=== PATIENT | male | born 1990 | race Caucasian/White ===

== ENCOUNTER 2022-08-06 15:12 | Emergency (ER) | payer OTHER, SELFPAY ==
--- NOTE | ~2022-08-06 | XR_ITS ---
EXAMINATION: XR HAND, LEFT CLINICAL INFORMATION: Soft tissue laceration of the thumb COMPARISON: None available. TECHNIQUE: PA, lateral, and oblique views of the left hand. FINDINGS: The bones and soft tissues are normal. No fracture. Alignment is anatomic. Joint spaces are maintained. No erosions or soft tissue calcifications. XR/XR hand LT min 3V IMPRESSION: Normal left hand.
--- NOTE | 2022-08-06 15:15 | ED.UPPEXIN ---
HPI - Extremity Injury (Upper) General Chief Complaint: Wound/Laceration <DAT Woodall Last Filed: 08/06/22 15:22> Stated Complaint: left hand thumb injury <DAT Woodall Last Filed: 08/06/22 15:22> Time Seen by Provider: 08/06/22 15:53 <DAT Woodall Last Filed: 08/06/22 15:22> Source: patient <DAT Wright Last Filed: 08/06/22 16:49> Mode of arrival: ambulatory <DAT Wright Last Filed: 08/06/22 16:49> Limitations: no limitations <DAT Wright Last Filed: 08/06/22 16:49> History of Present Illness HPI narrative: 32 year old male presents w/ laceration to L thumb [employer] cut himself with a wood shop pocket knife.Can see a white thing moving in laceration. Reports numbness to L thumb no tingling. No previous issues w/ left thumb. <DAT Wright Last Filed: 08/06/22 16:49> Related Data Home Medications: Previous Rx's Medication Instructions Recorded cephalexin 500 mg tablet 500 mg PO Q6H 10 days #40 tabs 08/06/22 <DAT Woodall Last Filed: 08/06/22 15:22> Allergies/Adverse Reactions: Allergies Allergy/AdvReac Type Severity Reaction Status Date / Time No Known Allergies Allergy Verified 08/06/22 15:15 <DAT Woodall Last Filed: 08/06/22 15:22> Review of Systems Review of Systems: Constitutional : No Weight loss, No Fever, No Chills, No Fatigue, No Malaise ENT/Mouth : No sore throat, No Rhinorrhea Eyes: No Eye Pain, No Swelling, No Redness Cardiovascular : No Chest Pain, No SOB, No Dyspnea on Exertion, No Orthopnea, No Edema, No Palpitations Respiratory : No Cough, No Sputum, No Wheezing Gastrointestinal : No Nausea, No Vomiting, No Diarrhea, No Constipation, No abdominal Pain, No Hematochezia, No Melena Genitourinary : No Dysuria, No Urinary Frequency, No Hematuria, Musculoskeletal : + joint pain, No Myalgias, No Joint Swelling Skin : No Skin Lesions, No rash, + laceration Neuro : No Weakness, No Numbness, No Dizziness, No Headache Psych : No Anxiety/Panic, No Depression All other systems reviewed and are negative <DAT Wright - Last Filed: 08/06/22 16:49> Yes all other systems are reviewed and are negative <DAT Wright - Last Filed: 08/06/22 16:49> [facility] Past Medical History Attestation statement: The following information was validated with the patient. <DAT Wright - Last Filed: 08/06/22 16:49> Source: old records reviewed and nursing notes reviewed <DAT Wright - Last Filed: 08/06/22 16:49> Social History Social History: Social History Advance Directives: No Advance Directives Information Provided: Yes <DAT Woodall - Last Filed: 08/06/22 15:22> Physical Exam Vital Signs: Vital Signs: Last Vital Signs Temp 98.9 F 08/06/22 15:16 Pulse 94 08/06/22 15:16 Resp 18 08/06/22 15:16 BP 133/89 08/06/22 15:16 Pulse Ox 97 08/06/22 15:16 O2 Del Method Room Air 08/06/22 15:16 BMI result Body Mass Index 28.2 <DAT Woodall - Last Filed: 08/06/22 15:22> Vital Signs: Last Vital Signs Temp 98.9 F 08/06/22 15:16 Pulse 94 08/06/22 15:16 Resp 18 08/06/22 15:16 BP 133/89 08/06/22 15:16 Pulse Ox 97 08/06/22 15:16 O2 Del Method Room Air 08/06/22 15:16 BMI result Body Mass Index 28.2 vss <DAT Wright - Last Filed: 08/06/22 16:49> Appearance: Alert.? Oriented X3.? No acute distress.? Head: Normocephalic, atraumatic, no step-offs or deformities Eyes: Pupils equal, round and reactive to light.? CVS: Normal heart rate and rhythm.? Pulses normal.? Respiratory: No respiratory distress.? Breath sounds normal.? Abdomen: Soft and nontender.? Skin: Skin warm and dry.? Normal skin color.? Normal skin turgor.? Extremities: 5/5 strength to bilateral upper and lower extremities L thumb with weakness w/ extension concerns for Extensor pollcus longus injury. Normal opposition and repositioning to all digits b/l. Cap refil < 2 seconds. No wrist drop. 2 + radial pulses. 1 cm liner laceration to distal aspect of thumb w/ exposed tendon beneath. Back: No midline tenderness, no C-spine tenderness, full range of motion, no CVA tenderness bilaterally Neuro: Oriented X 3.? No motor deficit.? No sensory deficit. CN 2-12 intact <DAT Wright - Last Filed: 08/06/22 16:49> Course Course Course Narrative: RME: 32yo M w/no sig PMHx c/o laceration to L thumb s/p using pocket knife [employer]. Last Tetanus '18 +1 cm laceration noted to left thumb MCP. ? Extensor tendon laceration Will need repair. Tetanus ordered Full HPI, ROS and PE to be performed by primary ED provider. <DAT Woodall - Last Filed: 08/06/22 15:22> Reevaluation(s) Reevaluation #1: Patient evaluated by Dr. Becerra agrees w/ tendon injury. lac repaired with 2, 5-0 non dissolvable sutures. Will have him follow with hand. Xray ordered results pending. Will DC home on atbx. Advised to return w/ new or worsening sx. Educated on worrisome signs and sx. <DAT Wright - Last Filed: 08/06/22 16:49> Time: 16:48 <DAT Wright - Last Filed: 08/06/22 16:49> Reevaluation #2: Spoke to ortho Sabra who is aware of case, no further recommendations. <DAT Wright Last Filed: 08/06/22 16:49> Medications Administered Discontinued Medications Generic Name Dose Route Start Last Admin Trade Name Freq PRN Reason Stop Dose Admin Diphtheria/Tetanus/Acell Pertussis 0.5 ml 08/06/22 15:15 08/06/22 15:49 Diphth,Pertus(Acell),Tet Adult 0.5 Ml Syringe IM 08/06/22 15:16 0.5 ml .ONCE ONE Administration Lidocaine HCl 5 ml 08/06/22 15:15 08/06/22 15:49 Lidocaine Hcl 1 % Mpf 5 Ml Vial INFILTRATI 08/06/22 15:16 5 ml ONCE ONE Administration <DAT Woodall - Last Filed: 08/06/22 15:22> Medications Administered Discontinued Medications Generic Name Dose Route Start Last Admin Trade Name Freq PRN Reason Stop Dose Admin Diphtheria/Tetanus/Acell Pertussis 0.5 ml 08/06/22 15:15 08/06/22 15:49 Diphth,Pertus(Acell),Tet Adult 0.5 Ml Syringe IM 08/06/22 15:16 0.5 ml .ONCE ONE Administration Lidocaine HCl 5 ml 08/06/22 15:15 08/06/22 15:49 Lidocaine Hcl 1 % Mpf 5 Ml Vial INFILTRATI 08/06/22 15:16 5 ml ONCE ONE Administration <DAT Wright Last Filed: 08/06/22 16:49> Medical Decision Making Medical Decision Making [facility] Narrative: 1640 32 year old male presents w. L thumb pain sp lac PE- w/ 5/5 strength to bilateral upper and lower extremities L thumb with weakness w/ extension concerns for Extensor pollcus longus injury. Normal opposition and repositioning to all digits b/l. Cap refil < 2 seconds. No wrist drop. 2 + radial pulses. 1 cm liner laceration to distal aspect of thumb w/ exposed tendon beneath. Concerns for injury tendon along w/ laceration. No signs of NV compromise or threatened limb. Plan- repair w/ sutures <DAT Wright Last Filed: 08/06/22 16:49> Differential Diagnosis Differential Diagnoses: The differential diagnosis associated with the presentation includes <DAT Wright Last Filed: 08/06/22 16:49> Concerns for injury tendon along w/ laceration. No signs of NV compromise or threatened limb. <DAT Wright - Last Filed: 08/06/22 16:49> Admission/Observation Consideration of admission/observation: Escalation of care including admission/observation considered <DAT Wright - Last Filed: 08/06/22 16:49> unlikley <DAT Wright - Last Filed: 08/06/22 16:49> Independent Interpretation I performed an independent interpretation of an: Plain X-Ray <DAT Wright - Last Filed: 08/06/22 16:49> Radiology Impression Discussion of test interpretation with radiology: I have reviewed the radiologist's reading. <DAT Wright - Last Filed: 08/06/22 16:49> Prescription Management I considered prescription management with: Antibiotic <DAT Wright - Last Filed: 08/06/22 16:49> Core Measures AMI core measures followed: Yes <DAT Wright - Last Filed: 08/06/22 16:49> Measure exclusions: not indicated <DAT Wright - Last Filed: 08/06/22 16:49> Procedures Laceration Laceration 1: Site: hand <DAT Wright - Last Filed: 08/06/22 16:49> Side (If applicable): left <DAT Wright - Last Filed: 08/06/22 16:49> Size (cm): 1 <DAT Wright - Last Filed: 08/06/22 16:49> Description: linear <DAT Wright - Last Filed: 08/06/22 16:49> Depth: simple, single layer and involves tendon <DAT Wright - Last Filed: 08/06/22 16:49> Local Anesthetic: lidocaine 1% <DAT Wright - Last Filed: 08/06/22 16:49> Amount of anesthesia used (mL): 5 <DAT Wright - Last Filed: 08/06/22 16:49> Skin layer closed with: vicryl <DAT Wright - Last Filed: 08/06/22 16:49> Size (cm): 5-0 <DAT Wright - Last Filed: 08/06/22 16:49> Technique: simple, interrupted <DAT Wright - Last Filed: 08/06/22 16:49> Critical Care Time Critical Care Time Critical Care Time: Yes <DAT Wright - Last Filed: 08/06/22 16:49> Total Critical Care Time: 35 <DAT Wright - Last Filed: 08/06/22 16:49> Attestation: I attest to this time spent taking care of the patient, obtaining history, physical, reviewing labs, imaging, speaking to my attending, speaking to specialist. <DAT Wright - Last Filed: 08/06/22 16:49> Discharge Plan Discharge Clinical Impression: Laceration, Injury of tendon of hand <DAT Woodall - Last Filed: 08/06/22 15:22> Patient Disposition: Home, Self-Care <DAT Woodall - Last Filed: 08/06/22 15:22> Instructions: Tendon Laceration (ED) <DAT Woodall - Last Filed: 08/06/22 15:22> Additional Instructions: Take your medications as prescribed. If you were prescribed antibiotics today, it is important that you take your medication to their entirety, do not skip any doses, do not finish them early. Follow-up with your primary care provider this week. Follow up with Hand/Ortho tomorrow. Concerns for an injury to extensor pollicus longus tendon Return to the emergency department with new or worsening symptoms. In case of emergency call 911 Suture removal in 7-10 days <DAT Woodall - Last Filed: 08/06/22 15:22> Prescriptions: New cephalexin 500 mg tablet 500 mg PO Q6H 10 Days Qty: 40 0RF <DAT Woodall - Last Filed: 08/06/22 15:22> Referrals: [facility] [place] [facility] [Provider Group] - 2 days Karol Joy MD [Physician] - 1 day Physician,Estrada J [Primary Care Provider] - 2 days <DAT Woodall - Last Filed: 08/06/22 15:22> Stand Alone Forms: Work/School Release <DAT Woodall - Last Filed: 08/06/22 15:22>
[2022-08-06 15:16] VITALS: BP 133/89; PULSE 94; RESP 18; TEMP 37.2; O2SAT 97; BMI 28.2
[2022-08-06] MEDS: Diphth,Pertus(ACell),Tet Adult 0.5 ML SYRINGE IM (15:49)
[2022-08-06] MEDS: Lidocaine HCl 1 % MPF 5 ML VIAL INFILTRATI (15:49)
[2022-08-06] MEDS: cephALEXin 500 MG CAPSULE PO (16:42)
== END 2022-08-06 17:00 | disposition home or self-care (01) ==
PROVIDERS: Emergency Provider Student in an Organized Health Care Education/Training Program
DX: S61.012A Laceration without foreign body of left thumb without damage to nail, initial encounter (principal); S66.922A Laceration of unspecified muscle, fascia and tendon at wrist and hand level, left hand, initial encounter; S60.512A Abrasion of left hand, initial encounter; W26.9XXA Contact with unspecified sharp object(s), initial encounter; Y93.9 Activity, unspecified; Y92.9 Unspecified place or not applicable; Y99.9 Unspecified external cause status; Z23 Encounter for immunization
CPT/HCPCS: 12001; 73130; 90471; 90715; 99282; 99284

== ENCOUNTER → 2022-08-09 11:17 | Outpatient (BNVA) | payer OTHER, SELFPAY | PROVIDERS: PCP Internal Medicine; Visit Provider Orthopaedic Surgery ==

== ENCOUNTER 2022-08-14 11:46 | Day surgery (SDC) | payer OTHER, SELFPAY ==
[2022-08-14] VITALS (7 sets, daily range): BP systolic 112–128; BP diastolic 71–96; PULSE 55–66; RESP 12–16; TEMP 36.1–36.4; O2SAT 97–100; BMI 28.2
[2022-08-14] MEDS: Lactated Ringers 1,000 ML 50 ML IVCONT (12:47)
--- NOTE | 2022-08-14 13:36 | MHC.SHP ---
Pre-Procedural Eval Section A Date of Service: 08/14/22 The patient is an INPATIENT: No Changes since office visit: No Cold of Flu in the past 2 weeks, No New Medical Problems, No Changes in Medication and No Patient answered all questions The History & Physical has been completed within 30 days and I have reviewed it.: Yes Section B Chief Complaint: Laceration without foreign body of left hand, init Allergies: Allergies Allergy/AdvReac Type Severity Reaction Status Date / Time No Known Allergies Allergy Verified 08/14/22 13:20 Plan I have reviewed the history and physical and performed a pertinent physical examination on my patient. No changes have occurred unless specified. Time Spent With Patient Time: Total time managing care of this patient today ____ minutes.
--- NOTE | 2022-08-14 13:36 | W.PM.OPN ---
Operative Note Operative Note Date of Service: 08/14/22 Narrative: Operative Note Narrative: Preop diagnosis: 1. Left dorsal hand laceration and laceration of extensor Tendons to the thumb Postop diagnosis: Same Procedure: 1. Repair of left extensor pollicis longus tendon 2. Repair of extensor pollicis brevis tendon Surgeon: Karol Joy MD Anesthesia: General Anesthesia Findings: EPL and EPB tendons lacerated at the MCP joint. MCP joint capsule appeared to be intact. No gross evidence of infection. Implants: none Tourniquet time: Nineteen minutes EBL: 5.0 ml Specimen: none Drains: None Complications: None Disposition: Brought to the recovery room in stable condition Plan: finish antibiotics. Follow-up in 10-14 days for wound check, suture removal and to place in a short-arm thumb spica cast. Indications: The patient is a [age] year old man with a laceration over the dorsal aspect of his left thumb at the MCP joint, and lacking active IP joint extension . The risks and benefits of operative treatment, including but not limited to risk of damage to blood vessels, nerves, tendons, infection, recurrence, persistent pain or numbness, incomplete resolution of preoperative symptoms, or need for further surgery were discussed with the patient and they wished to proceed with surgery. Procedure: Once consent was obtained patient was brought back to the operating suite and placed in the operating table in a supine position. . Perioperative antibiotics and anesthesia was administered by the anesthesia team. A tourniquet was applied to the proximal aspect of the left upper extremity and the limb was prepped and draped in a standard surgical fashion. The limb was elevated exsanguinated with Esmarch bandage and the tourniquet inflated to 250 mm of mercury for a total tourniquet time of Nineteen minutes. the patient had a transverse laceration across the dorsal aspect of the left thumb MCP joint. This was extended both proximally and distally by about 1 cm each. The incisions were made using a 15. Blade through the skin to the subcutaneous tissues. I then carefully dissected down to the level of the extensor tendon. He was found to have a transverse laceration through the extensor pollicis longus and extensor pollicis brevis tendons within the sagittal bands over the MCP joint. the MCP joint capsule appeared to be intact. The wound was then copiously irrigated with normal saline. I 1st repaired the extensor pollicis longus tendon using some 3-0 Ethibond suture. Extensor pollicis brevis was then also repaired Using 3-0 Ethibond. The sagittal band was reapproximated using a running closure of 5 0 Prolene suture.. Once satisfied with our extensor tendon repairs the wound was again copiously irrigated with normal saline. The tourniquet was deflated and hemostasis obtained with a brief period of local pressure. The skin edges were reapproximated with some 5 0 Prolene suture material and the wound was infiltrated with some 0.5% plain ropivacaine for postop pain control. Sterile dressing and a thumb spica splint were applied. The patient appears to have tolerated the procedure well with no complications. All digits were well vascularized at the conclusion of the case.
--- NOTE | 2022-08-14 13:55 | HO.ANESPROP2 ---
HPI - Anesthesia Eval Consult details Narrative: left extensor tendon lac repair PMFSH Active Problems Active Problems: All Active Problems (Updated 08/14/22 @ 12:18 by Gita Tapia, RN) Laceration of left hand involving extensor tendon (Acute) Past Medical History Medical History (Updated 08/14/22 @ 12:18 by Gita Tapia RN) GERD (gastroesophageal reflux disease) Family History Family history of problems with anesthesia: No Surgical History Surgical History (Updated 08/14/22 @ 12:18 by Gita Tapia RN) Hx of arthroscopic knee surgery Hx of foot surgery History of Problems with Anesthesia: No Social History Social History Patient Tobacco Use Status: Never used Tobacco Use of substances other than those prescribed or required for medical reasons: No Are you DNR?: No Advance Directives: No Advance Directives Information Provided: Yes Current occupational status: employed Current occupation: rt hand / [employer] Meds Allergies Allergy/AdvReac Type Severity Reaction Status Date / Time No Known Allergies Allergy Verified 08/14/22 13:20 Active Medications: Current Medications Lactated Ringer's (Lr) 1,000 mls @ 50 mls/hr IVCONT .Q20H CESIA Last Admin: 08/14/22 12:47 Dose: 50 mls/hr Cefazolin Sodium/Dextrose (Ancef) 2 gm in 50 mls @ 100 mls/hr IV PREOP ONE Stop: 08/14/22 14:01 Home Medications Medication Instructions Recorded Confirmed Last Taken Type omeprazole 10 mg capsule,delayed 10 mg PO DAILY 08/09/22 08/14/22 Unknown History release loratadine 10 mg tablet (Claritin) 10 mg PO DAILY 08/14/22 08/14/22 Unknown History Exam Exam Date and Time: August 14, 2022 1355 Height,Weight and Vital Signs: Height 6 ft 2 in Weight 99.79 kg Last Vital Signs Temp 97.6 F 08/14/22 12:25 Pulse 63 08/14/22 12:25 Resp 15 08/14/22 12:25 BP 119/82 08/14/22 12:25 Pulse Ox 99 08/14/22 12:25 O2 Del Method Room Air 08/14/22 12:25 Airway Mallampati Class: II TM Dist: >3cm Neck ROM: Full Heart: rrr Lungs: cta Assessment and Plan Assessment Anesthesia Assessment: Anesthesia Plan Discussed and Chart Reviewed Final Anesthetic Review Family History of Problems with Anesthesia: No History of Problems with Anesthesia: No NPO: Yes ASA Class: II Final Preanesthetic Review: No Changes in Pt Med Stat, Meds/Allgs Chart Reviewed, Consent Obtained/Reviewed and Anes Risks/Benef Reviewed Patient Risk: Low Procedure Risk: Low Anesthetic Plan Anesthetic Plan: GA Disposition: Standard PACU
== END 2022-08-14 14:45 | disposition home or self-care (01) ==
PROVIDERS: PCP Internal Medicine; Visit Provider Orthopaedic Surgery
PROC: (CPT 26418; principal; 2022-08-14 12:30)
DX: S61.012A Laceration without foreign body of left thumb without damage to nail, initial encounter (principal); S66.222A Laceration of extensor muscle, fascia and tendon of left thumb at wrist and hand level, initial encounter; W26.0XXA Contact with knife, initial encounter; Y93.89 Activity, other specified; Y92.018 Other place in single-family (private) house as the place of occurrence of the external cause; Y99.8 Other external cause status; K21.9 Gastro-esophageal reflux disease without esophagitis; Z79.899 Other long term (current) drug therapy
CPT/HCPCS: 26418 ×2; J0690; J1100; J1885; J2405; J2795; J3010

== ENCOUNTER → 2022-08-21 13:37 | Outpatient (BNVA) | payer OTHER, SELFPAY | PROVIDERS: PCP Internal Medicine; Visit Provider Physician Assistant | DX: S66.822A Laceration of other specified muscles, fascia and tendons at wrist and hand level, left hand, initial encounter (principal); S61.412A Laceration without foreign body of left hand, initial encounter; W45.8XXA Other foreign body or object entering through skin, initial encounter; Y93.9 Activity, unspecified; Y92.9 Unspecified place or not applicable; Y99.8 Other external cause status | CPT/HCPCS: 29085 ==

== ENCOUNTER → 2022-09-20 13:25 | Outpatient (BNVA) | payer OTHER, SELFPAY | PROVIDERS: PCP Internal Medicine; Visit Provider Orthopaedic Surgery ==